=== PATIENT | female | born 1990 | race Caucasian/White ===

== ENCOUNTER → 2022-08-13 | Outpatient (CLI) | payer OTHER | LOC: ORTHO 09:50 | PROVIDERS: ATTEND Orthopaedic Surgery | DX: M65.312 Trigger thumb, left thumb (principal); I10 Essential (primary) hypertension | CPT/HCPCS: 20551 ==

== ENCOUNTER → 2022-09-03 | Outpatient (CLI) | payer MEDICAID, OTHER ==
[~2022-09-03] MED LIST: LISI5TAB20 PO; METO50TA15 PO; OXC5T PO; SERT200C PO
== END ==
LOC: ORTHO 09:16
PROVIDERS: ATTEND Orthopaedic Surgery
DX: M65.312 Trigger thumb, left thumb (principal); I10 Essential (primary) hypertension
CPT/HCPCS: 99213

== ENCOUNTER 2022-09-04 06:13 | Outpatient (CLI) | payer MEDICAID, OTHER ==
[~2022-09-04] VITALS: Ht 167.7 cm; Wt 123.1 kg
[2022-09-04] MEDS ORDERED: METO50TA15 PO (09:05)
[2022-09-04] MEDS ORDERED: LISI5TAB20 PO (09:05)
[2022-09-04] MEDS ORDERED: SERT200C PO (09:05)
[2022-09-06] MEDS ORDERED: OXC5T PO (11:06)
== END 2022-09-04 12:54 | disposition home or self-care (01) ==
LOC: PREOP 06:13
PROVIDERS: ATTEND Orthopaedic Surgery
DX: Z01.818 Encounter for other preprocedural examination (principal)

== ENCOUNTER 2022-09-06 08:45 | Day surgery (SDC) | payer MEDICAID, OTHER ==
[~2022-09-06 08:45] MED LIST changes: -OXC5T PO
[2022-09-06] MEDS ORDERED: LACTATED RINGERS 1,000 ML IV PRN (09:00)
[2022-09-06] MEDS ORDERED: CLINDAMYCIN 600 MG/50 ML IVPB 50 ML IV ONE (09:00)
[2022-09-06] MEDS ORDERED: fentaNYL INJ 100 MCG/2 ML AMP ONE (09:27)
[2022-09-06] MEDS ORDERED: PROPOFOL INJECTION 50 ML IV ONE (09:27)
[2022-09-06] MEDS ORDERED: MIDAZOLAM 2 MG/2 ML (VERSED) VIAL ONE (09:27)
--- NOTE | 2022-09-06 09:27 | Progress Note-Pre Operative ---
Pre-Operative Progress Note Date of Available H&P: Sep 03, 2022 Date H&P Reviewed: Sep 06, 2022 Time H&P Reviewed: 09:20 History & Physical: H&P Reviewed, Patient Examed, No changes noted Pre-Operative Diagnosis: Left Trigger Thumb FRANKLIN GARCIA MD Sep 06, 2022 09:27
[2022-09-06 09:37] VITALS: BP 126/76
[2022-09-06] MEDS ORDERED: NEOSPORIN + PAIN RELIEF CREAM 15 GM ONE (09:53)
[2022-09-06] MEDS ORDERED: BUPIVACAINE 0.25% 30 ML (SENSORCAINE) VIAL ONE (09:53)
[2022-09-06] MEDS ORDERED: LIDOCAINE 1% INJ 20 ML VIAL ONE (09:53)
[2022-09-06 11:04] VITALS: BP 116/77
--- NOTE | 2022-09-06 11:04 | Operative Report - Ortho ---
Operative Report Surgeon (s)/Ehr Trainer (s) Surgeon FRANKLIN GARCIA MD Ehr Trainer n/a Pre-Operative Diagnosis Left Trigger Thumb Post-Operative Diagnosis same Operative Report Date of Procedure: Sep 06, 2022 Name of Procedure Performed: Left Trigger Thumb Release Description & Findings After obtaining informed consent and marking the patient in the preoperative holding area, the patient received IV antibiotics and was taken to the operating room. Surgical timeout was taken. The left upper extremity was prepped and draped in usual sterile fashion. Incision was made at the base of the thumb centered over the spencer. Blunt dissection was carried down to the spencer. Retractors were placed for protection of the digital nerves. Beginning proximally and working distally the spencer was divided. Thumb was put through motion with smooth motion of the tendon and no palpable catch. Probe was used to explore the tendon and it appeared healthy. Wound was lavaged with normal saline. Wound was closed with 4-0 nylon sutures. Dressed with xeroform, 4x4s, samira, cast padding, and ginger wrap. Patient tolerated the procedure well and was stable to the recovery room. Anesthesia Type MAC plus Local Estimated Blood Loss minimal Specimen(s) collected/removed None FRANKLIN GARCIA MD Sep 06, 2022 11:04
[2022-09-06] MEDS ORDERED: OXC5T PO ×2 (11:06)
[2022-09-06 11:15] VITALS: BP 141/83
--- NOTE | 2022-09-06 11:23 | Anesthesia-General Post-Op ---
MAC Patient Condition Mental Status/LOC: Same as Preop Cardiovascular: Satisfactory Nausea/Vomiting: Absent Respiratory: Satisfactory Pain: Controlled Complications: Absent Post Op Complications Complications None Follow Up Care/Instructions Patient Instructions None needed. Anesthesiology Discharge Order Discharge Order Patient is doing well, no complaints, stable vital signs, no apparent adverse anesthesia problems. No complications reported per nursing. PRISCILLA DANIELS CRNA Sep 06, 2022 11:23
[2022-09-06 11:25] VITALS: BP_SYST 145; BP_SYST 162; BP_DIAS 80; BP_DIAS 84
[2022-09-06] MEDS ORDERED: ONDANSETRON 4 MG/2 ML (SDV) Z0FRAN IVP PRN (11:30)
[2022-09-06] MEDS ORDERED: fentaNYL INJ 100 MCG/2 ML AMP IVP ONE (11:30)
[2022-09-06 11:55] VITALS: BP 110/86
[2022-09-06 12:09] VITALS: BP 110/86
== END 2022-09-06 12:00 | disposition home or self-care (01) ==
LOC: SDC 08:45
PROVIDERS: ATTEND Orthopaedic Surgery
DX: M65.312 Trigger thumb, left thumb (principal); F17.210 Nicotine dependence, cigarettes, uncomplicated; E66.9 Obesity, unspecified; Z68.41 Body mass index [BMI] 40.0-44.9, adult; Z28.310 Unvaccinated for COVID-19
CPT/HCPCS: 84703; 87081

== ENCOUNTER → 2022-10-03 | Outpatient (CLI) | payer MEDICAID ==
[~2022-10-03] MED LIST changes: +OXC5T PO
== END ==
LOC: ORTHO 08:13
PROVIDERS: ATTEND Orthopaedic Surgery
DX: Z47.89 Encounter for other orthopedic aftercare (principal)

== ENCOUNTER → 2022-12-26 | Outpatient (CLI) | payer MEDICAID, OTHER ==
--- NOTE | 2022-12-26 15:18 | Diagnostic Imaging Report ---
EXAMINATION: Left hand radiographs, 3 views. COMPARISON: July 23, 2022. HISTORY: 32-year-old female, left hand pain. Injury. FINDINGS: There is no acute fracture. There is no subluxation or dislocation. There is no radiopaque foreign body. Joint spaces are well preserved. IMPRESSION: 1. Unremarkable radiographs of the left hand. Dictated by: Dictated on workstation # [id number]
== END ==
LOC: ORTHO 13:41
PROVIDERS: ATTEND Orthopaedic Surgery
DX: M79.645 Pain in left finger(s) (principal)
CPT/HCPCS: 73130; 99213